=== PATIENT | female | born 1965 | race Two or more races ===

== ENCOUNTER → 2025-06-30 | Outpatient (CLI) | payer MEDICAID, SELFPAY ==
--- NOTE | 2025-06-30 15:07 | XR_ITS ---
EXAMINATION: Ankle, right. Technique: Ankle AP, oblique, lateral 3 views Date and time of exam: June 30, 2025: 1512 hours INDICATIONS: Right ankle injury 1 month ago. FINDINGS: Healing fracture distal fibular shaft with satisfactory alignment No ankle dislocation IMPRESSION: Subacute healing fracture distal fibular shaft with satisfactory alignment
== END | disposition home or self-care (01) ==
PROVIDERS: PCP Family Medicine; Referring Provider Orthopaedic Surgery; Visit Provider Orthopaedic Surgery
DX: S82.61XA Displaced fracture of lateral malleolus of right fibula, initial encounter for closed fracture (principal); X58.XXXA Exposure to other specified factors, initial encounter
CPT/HCPCS: 73610

== ENCOUNTER → 2025-07-30 | Outpatient (CLI) | payer MEDICAID, SELFPAY ==
--- NOTE | 2025-07-30 09:39 | XR_ITS ---
EXAMINATION: Ankle, right 3 views. Technique: Ankle AP, oblique, lateral 3 views Date and time of exam: July 30, 2025, 0959 hours INDICATIONS: Ankle fracture 2 months ago. FINDINGS: Significant interval healing fracture distal fibular shaft compared with June 30, 2025 Satisfactory alignment Moderate narrowing tibiotalar joint Small plantar bony calcaneal spur IMPRESSION: Significant interval healing fracture distal fibular shaft compared with June 30, 2025 with satisfactory alignment
== END | disposition home or self-care (01) ==
PROVIDERS: PCP Family Medicine; Referring Provider Orthopaedic Surgery; Visit Provider Orthopaedic Surgery
DX: S82.61XA Displaced fracture of lateral malleolus of right fibula, initial encounter for closed fracture (principal); X58.XXXA Exposure to other specified factors, initial encounter
CPT/HCPCS: 73610